=== PATIENT | female | born 1930 | race Hispanic/Latino ===

== ENCOUNTER 2016-08-10 13:41 | Outpatient (CLI) | payer MEDICARE ==
--- NOTE | 2016-08-10 15:32 | XRay Report ---
ROUTINE CHEST, TWO VIEWS: HISTORY: Cough. The trachea, heart, mediastinal contour, lung pagan and bony thorax are unremarkable. IMPRESSION: No acute cardiopulmonary process.
== END 2016-08-10 13:42 | disposition home or self-care (01) ==
LOC: SPVIMAG 13:41
PROVIDERS: ATTEND Internal Medicine
DX: R09.89 Other specified symptoms and signs involving the circulatory and respiratory systems (principal)
CPT/HCPCS: 71020

== ENCOUNTER 2016-12-23 15:24 | Outpatient (CLI) | payer MEDICARE ==
--- NOTE | 2016-12-24 09:04 | XRay Report ---
CERVICAL SPINE RADIOGRAPHS INDICATION: Degenerative arthritis of C-spine. COMPARISON: None similar. FINDINGS: AP, lateral, oblique and open-mouth views of the cervical spine demonstrate normal imaged dens with symmetric lateral masses, though slightly obscured due to overlying skull. Numerous radiopaque dental material. Demineralized bones. Intact craniocervical articulation with normal predental space and prevertebral soft tissues on the lateral view with visualization up to C7-T1 disc. Preserved vertebral body stature, allowing for mild degenerative spurring inferiorly. Slight lower cervical usual curvature reversal. Mild to moderate disc narrowing from C4-C5 inferiorly as also suspected left neural foraminal narrowing. Clear visualized lung apices. CONCLUSION: Demineralized bones with mid to lower cervical spine degenerative changes, as described. Please correlate. Thank you for the opportunity to participate in this patient's care.
== END 2016-12-23 15:25 | disposition home or self-care (01) ==
LOC: SPVIMAG 15:24
PROVIDERS: ATTEND Internal Medicine
DX: M47.892 Other spondylosis, cervical region (principal); M43.8X2 Other specified deforming dorsopathies, cervical region
CPT/HCPCS: 72050